=== PATIENT | female | born 1960 | race Hispanic/Latino ===

== ENCOUNTER → 2018-12-24 | Outpatient (CLI) | payer BC, OTHER ==
[~2018-12-24] MED LIST: GADODIAMIDE 10 MMOL/20 ML ML IV ONE
== END | disposition home or self-care (01) ==
LOC: RAH 08:09
PROVIDERS: ATTEND Family Medicine
DX: N60.01 Solitary cyst of right breast (principal); N64.52 Nipple discharge; Z80.3 Family history of malignant neoplasm of breast
CPT/HCPCS: 77049; A9579